=== PATIENT | female | born 1960 | race Caucasian/White ===

== ENCOUNTER 2016-05-23 15:08 | Emergency (ER) | payer BC ==
[~2016-05-23 15:08] MED LIST: ADULT LOW DOSE81 MG PO; ASPIRIN EC81 MG PO; CHLORASEPTIC177 ML PO; CLARITIN10 MG PO; COREG25 MG PO; FERROUS SULFAT325 MG PO; FLUTICASONE PRO16 GM NS; HUMALOG100 UNIT/2 SQ; HYDRALAZINE HC100 MG PO; IMURAN50 MG PO; LACTULOSE10 GM/15 M PO; LASIX40 MG PO; LEVAQUIN750 MG PO; NORVASC10 MG PO; OMEPRAZOLE40 MG PO; PERCOCET 10-321 EACH PO; PRAVACHOL20 MG PO; PRENATAL PLUS1 EAC2 PO; PROGRAF0.5 MG PO; PROGRAF1 MG PO; PYRIDIUM100 MG PO; TRAMADOL HCL50 MG PO; TYLENOL EXTRA500 MG PO; VITAMIN D32000 UNI1 PO; WELLBUTRIN XL300 MG PO; ZOFRAN8 MG PO
== END 2016-05-23 16:01 | disposition home or self-care (01) ==
LOC: ER 15:08
DX: J06.9 Acute upper respiratory infection, unspecified (principal); Z87.891 Personal history of nicotine dependence; Z79.82 Long term (current) use of aspirin; Z79.899 Other long term (current) drug therapy; Z88.2 Allergy status to sulfonamides; Z88.8 Allergy status to other drugs, medicaments and biological substances
CPT/HCPCS: 87502

== ENCOUNTER 2016-08-25 13:51 | Emergency (ER) | payer BC | END 2016-08-25 17:49 | disposition home or self-care (01) | LOC: ER 13:51 | DX: M25.461 Effusion, right knee (principal); E11.9 Type 2 diabetes mellitus without complications; I10 Essential (primary) hypertension; K21.9 Gastro-esophageal reflux disease without esophagitis; Z90.710 Acquired absence of both cervix and uterus; Z90.49 Acquired absence of other specified parts of digestive tract; Z79.82 Long term (current) use of aspirin; Z79.899 Other long term (current) drug therapy; Z88.1 Allergy status to other antibiotic agents; Z91.013 Allergy to seafood; Z88.8 Allergy status to other drugs, medicaments and biological substances; W19.XXXA Unspecified fall, initial encounter | CPT/HCPCS: 36415 ==